=== PATIENT | female | born 1995 | race Caucasian/White ===

== ENCOUNTER → 2016-09-13 | Outpatient (CLI) | payer BC ==
--- NOTE | 2016-09-13 12:40 | MAMMOGRAPHY REPORT ---
ULTRASOUND OF RIGHT BREAST: 09/13/2016 CLINICAL HISTORY: The patient reports a palpable lump in the right breast for approximately 2 months . She reports intermittent tenderness. COMPARISON: No prior exams were available for comparison. TECHNIQUE: Real-time targeted ultrasound of the right breast was performed. FINDINGS: Real-time, high resolution targeted ultrasound was performed of the area of the palpable lump pointe d out by the patient, in the right breast at 5:30, approximately 4 cm from the nipple. Sonographica lly normal tissue is seen in this region, without evidence of a mass or other suspicious sonographic abnormality. IMPRESSION: ACR BI-RADS CATEGORY 4A: LOW SUSPICION FOR MALIGNANCY - FOLLOW-UP RECOMMENDED No suspicious sonographic abnormality at the site of the palpable right breast lump. However, as the lump is newly palpable, recommend fine-needle aspiration by the pathology department for further ev aluation. The patient was verbally notified of the results. Keke Perla M.D. /:09/13/2016 09:42:57 Tile Shader: Elaine Elder, [facility] letter sent: Abnormal 4/5 BI-RADS Code: ACR BI-RADS Category 4A: Low Suspicion For Malignancy
== END | disposition home or self-care (01) ==
LOC: C.MAMM 09:02
PROVIDERS: ATTEND Obstetrics & Gynecology
DX: N63 Unspecified lump in breast (principal)